=== PATIENT | female | born 1980 | race Caucasian/White ===

== ENCOUNTER 2016-08-15 08:46 | Emergency (ER) | payer BC ==
[2016-08-15 08:58] VITALS: BP 114/83
--- NOTE | 2016-08-15 09:05 | UC ---
Respiratory Complaint HPI - HPI Summary HPI Summary: 2 -3 days of cough, chills, no sputum, no fever, did get a flu shot this year - History of Current Complaint Chief Complaint: UCGeneralIllness Stated Complaint: FEVER CHILLS BODYACHES COUGH Time Seen by Provider: 08/15/16 08:58 Hx Obtained From: Patient Hx Last Menstrual Period: 08/04/16 ?: No Onset/Duration: Sudden Onset, Lasting Days - 3, Still Present Timing: Constant Severity Initially: Mild Severity Currently: Mild Pain Intensity: 2 Pain Scale Used: 0-10 Numeric Character: Cough: Nonproductive Aggravating Factors: Nothing Alleviating Factors: Nothing Associated Signs And Symptoms: Positive: Chills, URI - Allergies/Home Medications Allergies/Adverse Reactions: Allergies Allergy/AdvReac Type Severity Reaction Status Date / Time No Known Allergies Allergy Verified 08/15/16 08:54 Home Medications: Home Medications Acetaminophen TAB* [Tylenol TAB*] 2 tab PRN 08/15/16 [History] PMH/Surg Hx/FS Hx/Imm Hx Previously Healthy: No Endocrine History Of: Denies: Diabetes, Thyroid Disease Cardiovascular History Of: Denies: Cardiac Disorders, Hypertension, Pacemaker/ICD Respiratory History Of: Denies: COPD, Asthma GI/ History Of: Denies: Ulcer, Renal Disease Psychological History Of: Reports: Anxiety - ON MEDICATION FOR - Surgical History Surgical History: Yes Surgery Procedure, Year, and Place: TUBAL LIGATION; 2 C-SECT; VACUUM D&C. 2015 RIGHT ankle- screws placed - Family History Known Family History: Positive: Cardiac Disease, Diabetes - Social History Occupation: Employed Full-time - [employer] Lives: With Family Alcohol Use: None Substance Use Type: None Smoking Status (MU): Light Every Day Tobacco Smoker Amount Used/How Often: < 1/2PPD Length of Time of Smoking/Using Tobacco: 10+ YEARS Have You Smoked in the Last Year: Yes Household Exposure Type: Cigarettes Cessation Counseling: Counseled 3+Min - 10 Min - Immunization History Most Recent Influenza Vaccination: 2016 Most Recent Tetanus Shot: 2003 Review of Systems Constitutional: Chills, Fatigue Skin: Negative Eyes: Negative ENT: Negative Respiratory: Cough Cardiovascular: Negative Gastrointestinal: Negative Genitourinary: Negative Motor: Negative Neurovascular: Negative Musculoskeletal: Negative Neurological: Negative Psychological: Negative All Other Systems Reviewed And Are Negative: Yes Physical Exam Triage Information Reviewed: Yes Appearance: Well-Appearing, No Pain Distress, Obese Vital Signs: Initial Vital Signs Temp 98.1 F 08/15/16 08:55 Pulse 82 08/15/16 08:55 Resp 18 08/15/16 08:55 BP 114/83 08/15/16 08:55 Pulse Ox 96 08/15/16 08:55 Vital Signs Reviewed: Yes Eye Exam: Normal Eyes: Positive: Conjunctiva Clear ENT Exam: Normal ENT: Positive: Normal ENT inspection, Hearing grossly normal, Pharynx normal, TMs normal. Negative: Nasal congestion, Nasal drainage, Tonsillar swelling, Tonsillar exudate, Trismus, Muffled/hoarse voice Dental Exam: Normal Neck exam: Normal Neck: Positive: Supple, Nontender, No Lymphadenopathy Respiratory Exam: Normal Respiratory: Positive: Chest non-tender, Lungs clear, Normal breath sounds, No respiratory distress, No accessory muscle use Cardiovascular Exam: Normal Cardiovascular: Positive: RRR, No Murmur, Pulses Normal Musculoskeletal Exam: Normal Musculoskeletal: Positive: Strength Intact, ROM Intact, No Edema Neurological Exam: Normal Neurological: Positive: Alert, Muscle Tone Normal Psychological Exam: Normal Skin Exam: Normal UC Diagnostic Evaluation - Laboratory O2 Sat by Pulse Oximetry: 96 Respiratory Course/Dx - Course Course Of Treatment: albuterol, zithromax, increase fluids, follow with pcp re- check prn - Differential Dx/Diagnosis Differential Diagnosis/HQI/PQRI: Asthma, Bronchitis, Lower Resp Infection, Other - uri Provider Diagnoses: Bronchitis, Nicotine dependant Discharge - Discharge Plan Condition: Stable Disposition: HOME Prescriptions: Albuterol HFA INHALER* [Ventolin HFA Inhaler*] 2 puff INH Q6H PRN #1 mdi PRN Reason: cough Azithromycin TAB* [Zithromax TAB (Z-KEMI)*] 250 mg PO .Z-KEMI INSTRUCTIONS #6 tab Benzonatate CAP* [Tessalon CAP*] 100 mg PO TID PRN #30 cap PRN Reason: cough Patient Education Materials: How to Use a Metered-Dose Inhaler (ED), Acute Bronchitis (ED) Forms: *Work Release Referrals: Kenn Jones MD [Primary Care Provider] - If Needed
== END 2016-08-15 09:10 | disposition home or self-care (01) ==
LOC: UCEAST 08:46
DX: J40 Bronchitis, not specified as acute or chronic (principal); F17.210 Nicotine dependence, cigarettes, uncomplicated
CPT/HCPCS: 99212; G0463

== ENCOUNTER 2016-08-30 10:34 | Emergency (ER) | payer BC ==
[2016-08-30 10:58] VITALS: BP 136/93
--- NOTE | 2016-08-30 13:45 | UC ---
Rubin Benito Karl, scribed for Tasha Ribera DO on 08/30/16 at 1315 . Lower Extremity/Ankle HPI - HPI Summary HPI Summary: Pt is a 36 y/o female that presents to [facility] c/o intermittent 6/10 right ankle/ foot pain for the past 2-3 months. Pt reported that the pain is a sharp shooting pain that occasionally throbs. Pt stated she is on her feet a lot which aggravates her pain and did not suffer any injury to the foot/ankle. Pt stated that she had reconstructive surgery on her right ankle 2 years ago. Pt denied any other health problems. - History of Current Complaint Chief Complaint: UCLowerExtremity Stated Complaint: FOOT PAIN Time Seen by Provider: 08/30/16 13:07 Hx Obtained From: Patient Hx Last Menstrual Period: 08/04/16 ?: No Onset/Duration: Gradual Onset Pain Intensity: 6 - right ankle/foot pain Pain Scale Used: 0-10 Numeric Aggravating Factor(s): Other - ADL Alleviating Factor(s): Nothing Able to Bear Weight: Yes Legs: 1 - right ankle/foot pain Feet (Multiple View): 1 - right foot/ankle pain - Allergies/Home Medications Allergies/Adverse Reactions: Allergies Allergy/AdvReac Type Severity Reaction Status Date / Time No Known Allergies Allergy Verified 08/15/16 08:54 PMH/Surg Hx/FS Hx/Imm Hx Endocrine History Of: Denies: Diabetes, Thyroid Disease Cardiovascular History Of: Denies: Cardiac Disorders, Hypertension, Pacemaker/ICD Respiratory History Of: Denies: COPD, Asthma GI/ History Of: Denies: Ulcer, Renal Disease Psychological History Of: Reports: Anxiety - ON MEDICATION FOR - Surgical History Surgical History: Yes Surgery Procedure, Year, and Place: TUBAL LIGATION; 2 C-SECT; VACUUM D&C. 2015 RIGHT ankle- screws placed - Family History Known Family History: Positive: Cardiac Disease, Diabetes Negative: Hypertension - Social History Occupation: Employed Full-time Lives: With Family Alcohol Use: None Substance Use Type: None Smoking Status (MU): Light Every Day Tobacco Smoker Amount Used/How Often: < 1/2PPD Length of Time of Smoking/Using Tobacco: 10+ YEARS Have You Smoked in the Last Year: Yes Household Exposure Type: Cigarettes Cessation Counseling: Patient Advised to Stop - Immunization History Most Recent Influenza Vaccination: 2016 Most Recent Tetanus Shot: 2002 Review of Systems Constitutional: Negative Skin: Negative Eyes: Negative ENT: Negative Respiratory: Negative Cardiovascular: Negative Gastrointestinal: Negative Genitourinary: Negative Motor: Negative Neurovascular: Negative Musculoskeletal: Arthralgia - right ankle/foot Neurological: Negative Psychological: Negative All Other Systems Reviewed And Are Negative: Yes Physical Exam Triage Information Reviewed: Yes Appearance: Well-Appearing, No Pain Distress, Obese Vital Signs: Initial Vital Signs Temp 97.8 F 08/30/16 10:53 Pulse 83 08/30/16 10:53 Resp 18 08/30/16 10:53 BP 136/93 08/30/16 10:53 Pulse Ox 99 08/30/16 10:53 Vital Signs Reviewed: Yes Eyes: Positive: Conjunctiva Clear. Negative: Discharge ENT: Positive: Hearing grossly normal. Negative: Muffled/hoarse voice Neck exam: Normal Neck: Positive: Supple Respiratory: Positive: Chest non-tender, Lungs clear, Normal breath sounds, No respiratory distress Cardiovascular: Positive: RRR, No Murmur Musculoskeletal: Positive: ROM Limited @ - ad/abduction, inversion, eversion, Other: - midfoot tenderness, post surgical changes Neurological: Positive: Alert, Muscle Tone Normal Psychological Exam: Normal Psychological: Positive: Age Appropriate Behavior Skin Exam: Normal - warm, dry, normal color Lower Extremity Course/Dx - Differential Dx/Diagnosis Differential Diagnosis/HQI/PQRI: Arthritis, Sprain, Tendonitis Provider Diagnoses: arththritis Discharge - Discharge Plan Condition: Stable Disposition: HOME Prescriptions: Naproxen [Naproxen 500 MG TABS] 500 mg PO BID #10 tab traMADol TAB* [Ultram*] 50 mg PO Q8H PRN #14 tab MDD 3 TABS PRN Reason: Pain Patient Education Materials: Arthralgia (ED) Referrals: Kenn Jones MD [Primary Care Provider] - (FOLLOW UP IN 3-5 DAYS) Jose Perez MD [Medical Doctor] - (follow up in 1-2 weeks) Additional Instructions: YOU WOULD LIKELY BENEFIT FROM OSTEOPATHIC MANIPULATION. WE RECOMMEND THAT YOU FIND AN OSTEOPATHIC PHYSICIAN IN YOUR AREA WHO DOES LYMPHATIC, MYOFACIAL AND VISCERAL WORK. The documentation as recorded by the Rubin haile Karl accurately reflects the service I personally performed and the decisions made by me, Tasha Ribera DO.
== END 2016-08-30 13:30 | disposition home or self-care (01) ==
LOC: UCEAST 10:34
DX: M19.071 Primary osteoarthritis, right ankle and foot (principal); E66.9 Obesity, unspecified; F41.9 Anxiety disorder, unspecified; F17.210 Nicotine dependence, cigarettes, uncomplicated; Z98.890 Other specified postprocedural states
CPT/HCPCS: 99212; G0463

== ENCOUNTER 2017-02-20 21:08 | Emergency (ER) | payer BC ==
[2017-02-20 21:14] VITALS: BP 121/81
--- NOTE | 2017-03-12 16:37 | UC ---
Jocelyn Benito Thomas, scribed for Mabel Miranda MD on 02/20/17 at 2128 . Upper Extremity HPI - HPI Summary HPI Summary: The patient is a 36 y/o F presenting to [facility] [place] c/o R elbow pain that began 1 week ago. The pt is unaware of any specific injury. The patient describes the pain as aching and rates the pain 6/10. Pain is aggravated by ADLs, changing position , and exercise. Pain is alleviated by rest. The pt has taken ibuprofen to alleviate the pain, which has helped somewhat. She reports a shooting pain upon movement of her elbow. She additionally c/o swelling (R elbow) and bruising (R elbow). Pt denies fever, chill, nausea, and vomiting. She reports a recent long car ride with her arm in a specific position. She is L-handed. She denies any injury like this before. Her PCP is Dr. Jones. PMHx: osteoarthritis. PSHx: tubal ligation, R ankle hardware, and vacuum D&C. SHx: smoking (every day), no alcohol, no illicit drugs. FHx: DM, CAD. Patients medications are reviewed this visit. - History of Current Complaint Chief Complaint: UCUpperExtremity Stated Complaint: ARM COMPLAINT Time Seen by Provider: 02/20/17 21:18 Hx Obtained From: Patient Hx Last Menstrual Period: BEGINNING FEBRUARY Onset/Duration: Gradual Onset, Lasting Weeks - 1 week, Still Present Pain Intensity: 6 Pain Scale Used: 0-10 Numeric Aggravating Factor(s): Movement Alleviating Factor(s): OTC Meds, Rest Associated Signs And Symptoms: Positive: Swelling, Bruising. Negative: Fever Related History: Dominant Hand Left, Other: - NEG: nausea, vomiting - Allergies/Home Medications Allergies/Adverse Reactions: Allergies Allergy/AdvReac Type Severity Reaction Status Date / Time No Known Allergies Allergy Verified 02/20/17 21:14 Home Medications: Home Medications NK [No Home Medications Reported] 02/20/17 [History Confirmed 02/20/17] PMH/Surg Hx/FS Hx/Imm Hx Previously Healthy: No - osteoarthritis - Surgical History Surgical History: Yes Surgery Procedure, Year, and Place: TUBAL LIGATION; 2 C-SECT; VACUUM D&C. 2015 RIGHT ankle- screws placed - Family History Known Family History: Positive: Cardiac Disease, Diabetes Negative: Hypertension - Social History Alcohol Use: None Substance Use Type: None Smoking Status (MU): Current Every Day Smoker Type: Cigarettes Amount Used/How Often: 1/2PPD Length of Time of Smoking/Using Tobacco: 10+ YEARS Have You Smoked in the Last Year: Yes Household Exposure Type: Cigarettes - Immunization History Most Recent Influenza Vaccination: 2016 Most Recent Tetanus Shot: 2003 Review of Systems Constitutional: Negative Skin: Bruising - R elbow Eyes: Negative ENT: Negative Respiratory: Negative Cardiovascular: Negative Gastrointestinal: Negative Genitourinary: Negative Motor: Negative Neurovascular: Negative Musculoskeletal: Edema - R elbow, Other: - POS: R elbow pain, worsened with movement. Neurological: Negative Psychological: Negative All Other Systems Reviewed And Are Negative: Yes Physical Exam Triage Information Reviewed: Yes Appearance: Well-Appearing, No Pain Distress, Well-Nourished Vital Signs: Initial Vital Signs Temp 98.6 F 02/20/17 21:11 Pulse 81 02/20/17 21:11 Resp 16 02/20/17 21:11 BP 121/81 02/20/17 21:11 Pulse Ox 98 02/20/17 21:11 Vital Signs Reviewed: Yes Eye Exam: Normal ENT Exam: Normal ENT: Positive: Hearing grossly normal Neck exam: Normal Neck: Positive: Supple, Nontender, No Lymphadenopathy Respiratory Exam: Normal Respiratory: Positive: Chest non-tender, Lungs clear, Normal breath sounds Cardiovascular Exam: Normal Cardiovascular: Positive: RRR, No Murmur, Pulses Normal Abdominal Exam: Normal Abdomen Description: Positive: Nontender, No Organomegaly, Soft Bowel Sounds: Positive: Present Musculoskeletal Exam: Normal Musculoskeletal: Positive: Other: - + abduct right shoulder + flex/ext elbow with pain right lateral elbow; + supinate/pronate with pain lateral aspect. Pt with pain along right lateral epicondyl direct palp Neurological Exam: Normal Neurological: Positive: Alert, Muscle Tone Normal, Fatigued - + thumb up, a ok, finger spread, finger cross Psychological Exam: Normal Skin: Positive: Other - mild ecchymosis olecranon no rashes, no erythema, no fluctuance Upper Extremity Course/Dx - Course Course Of Treatment: Pt with point tenderness right lateral epicondyl following a car trip with pressure. No concern for infection - full rOM. recommend. motrin/apap. heat. rest. pcp f/u - Differential Dx/Diagnosis Provider Diagnoses: right epicondylitis Discharge - Discharge Plan Condition: Stable Disposition: HOME Patient Education Materials: Tendinitis (ED) Forms: *Work Release Referrals: Kenn Jones MD [Primary Care Provider] - Additional Instructions: - wear sling for comfor and support - rest your arm as much as your possible to help with pain - Okay to apply ice (Wrapped in a towel) 20 minutes at a time, 2-3 times a day. - Okay to take motrin (ibuprofen, advil) 600mg every 6-8 hours for pain. Take with food. do NOT take for more than 4-5 days - Contact your doctor tomorrow to schedule a follow-up appointment early next week. Contact your doctor or return with questions or concerns The documentation as recorded by the Jocelyn haile Thomas accurately reflects the service I personally performed and the decisions made by me, Mabel Miranda MD.
== END 2017-02-20 21:42 | disposition home or self-care (01) ==
LOC: UCEAST 21:08
DX: M77.11 Lateral epicondylitis, right elbow (principal); F17.210 Nicotine dependence, cigarettes, uncomplicated
CPT/HCPCS: 99212; G0463

== ENCOUNTER 2018-03-31 18:55 | Emergency (ER) | payer BC ==
[2018-03-31 19:18] VITALS: BP 115/77
[2018-03-31] MEDS ORDERED: Ibuprofen TAB* 400 MG PO ONE (19:59)
--- NOTE | 2018-03-31 19:59 | UC ---
Knee Pain HPI - HPI Summary HPI Summary: Pt is a 37 year old female presenting to the with a chief complaint of L knee pain. She states that it started about a week ago but has only gotten worse and is constant. The pain is worse with any knee movement, and worse if she stays in one position for too long. She feels that it looks a little swollen , and states that her toes and feel fine. Pt denies taking any medications today as well as any recent falls or injuries. Pt reports that she has had knee trouble in the past, she had a bakers cyst about 5-6 years ago. Pt also had her R ankle rebuilt three years ago. Pt denies any hx of diabetes or HTN or any drug or EtOH use. Pt reports smoking ppd. - History of Current Complaint Chief Complaint: UCLowerExtremity Stated Complaint: KNEE PAIN Time Seen by Provider: 03/31/18 19:39 Hx Obtained From: Patient Hx Last Menstrual Period: 03/05/18 Onset/Duration: Gradual Onset, Lasting Weeks, Still Present Severity Initially: Mild Severity Currently: Mild Location Of Injury: L knee. Pain Intensity: 4 Pain Scale Used: 0-10 Numeric Character: Aching Aggravating Factor(s): Other - staying in one position too long Alleviating Factor(s): Other - changing positions Associated Signs And Symptoms: Positive: Swelling - mild Able to Bear Weight: Yes - Allergies/Home Medications Allergies/Adverse Reactions: Allergies Allergy/AdvReac Type Severity Reaction Status Date / Time No Known Allergies Allergy Verified 03/31/18 19:18 PMH/Surg Hx/FS Hx/Imm Hx Previously Healthy: Yes Endocrine History: Other - negative diabetes Other Endocrine History: none Cardiovascular History: Other Other Cardiovascular History: negative Hypertension - Surgical History Surgical History: Yes Surgery Procedure, Year, and Place: TUBAL LIGATION; 2 C-SECT; VACUUM D&C. 2015 RIGHT ankle- screws placed - Family History Known Family History: Positive: Cardiac Disease, Diabetes Negative: Hypertension - Social History Occupation: Employed Part-time Lives: With Family Alcohol Use: None Substance Use Type: None Smoking Status (MU): Current Every Day Smoker Type: Cigarettes Amount Used/How Often: 1/2PPD Length of Time of Smoking/Using Tobacco: 10+ YEARS Have You Smoked in the Last Year: Yes Household Exposure Type: Cigarettes - Immunization History Most Recent Influenza Vaccination: 2016 Most Recent Tetanus Shot: 2002 Review of Systems Constitutional: Negative - fever Musculoskeletal: Other: - L knee pain All Other Systems Reviewed And Are Negative: Yes Physical Exam - Summary Physical Exam Summary: Appearance: Well-appearing, Well-nourished Skin: Warm Eyes: Normal ENT: Normal Neck: Supple, nontender Respiratory: Clear to auscultation Cardiovascular: Normal S1, S2. No murmurs. Normal distal pulses in tibial and radial bilaterally. Abdomen: Soft, nontender Musculoskeletal: Strength/ROM Intact, pain partially reproduced with valgus stress, negative anterior and posterior drawer signs, no joint effusion, no redness. Neurological: Normal, A&Ox3 Psychiatric: Normal General: No acute distress Triage Information Reviewed: Yes Vital Signs: Initial Vital Signs Temp 99.2 F 03/31/18 19:13 Pulse 83 03/31/18 19:13 Resp 16 03/31/18 19:13 BP 115/77 03/31/18 19:13 Pulse Ox 99 03/31/18 19:13 Vital Signs Reviewed: Yes Diagnostics - Radiology No standard instances Xray Interpretation: No Acute Changes - Knee XRAY Radiology Interpretation Completed By: ED Physician - Report has not yet been reviewed by radiologist. Knee Pain Course/Dx - Course Course Of Treatment: No acute fractures or dislocations seen on x-ray. Patient able to walk normally, instructed to follow up with orthopedist for further workup. Distal neurovascular exam intact, agrees to and understands discharge instructions. - Differential Dx/Diagnosis Provider Diagnoses: Left knee pain Discharge - Sign-Out/Discharge Documenting (check all that apply): Patient Departure All imaging exams completed and their final reports reviewed: Yes - Discharge Plan Condition: Stable Disposition: HOME Patient Education Materials: Knee Pain (ED) Referrals: Kenn Jones MD [Primary Care Provider] - Jose Perez MD [Medical Doctor] - Additional Instructions: PLEASE MAKE AN APPOINTMENT TO SEE YOUR ORTHOPEDIST WITHIN 1-2 WEEKS. PLEASE SEEK IMMEDIATE MEDICAL ATTENTION FOR ANY WORSENING OR CONCERNING SYMPTOMS - Billing Disposition and Condition Condition: STABLE Disposition: Home - Attestation Statements Document Initiated by Scribe: Yes Documenting Scribe: Shira Willson Provider For Whom Scribe is Documenting (Include Credential): Shaun Goff MD. Scribe Attestation: Shira Benito, scribed for Shaun Goff MD. on 03/31/18 at 2305. Scribe Documentation Reviewed: Yes Provider Attestation: The documentation as recorded by the scribe, Shira Willson accurately reflects the service I personally performed and the decisions made by me, Shaun Goff MD.
--- NOTE | 2018-04-01 08:08 | RAD ---
INDICATION: 1 week of atraumatic left knee pain COMPARISON: None TECHNIQUE: 3 view radiograph of the left knee. FINDINGS: The visualized bones are well-corticated and properly aligned. The joint spaces are properly maintained. There is no radiographic evidence of joint effusion. There is no acute fracture, dislocation or other focal bony abnormality. IMPRESSION: Normal knee radiograph as described above. If the patient's symptoms persist, follow-up imaging is recommended. R1
== END 2018-03-31 21:17 | disposition home or self-care (01) ==
LOC: UCEAST 18:55
DX: M25.562 Pain in left knee (principal); F17.210 Nicotine dependence, cigarettes, uncomplicated
CPT/HCPCS: 99212; A9270-GY; G0463

== ENCOUNTER 2018-05-11 21:16 | Emergency (ER) | payer BC ==
--- OUTSIDE RECORDS SUMMARY | 2018-05-11 21:22 | XMS REPORT ---
:1980 External Reference #:[id number] Author Organization [employer] [facility] Address [address] [place] [address] Phone [phone] Care Team Providers Name Role Phone Kenn Jones MD Primary Care Physician Unavailable Payers Type Date Identification Numbers Payment Provider Subscriber Commercial Policy Number: [id number] [facility] Marion Guerrero PayID: [id number] [address] [place] [address] Problems Date Description Provider Status Onset: 08/10/2014 Skin sensation disturbance Ravi King M.D. Active Family History Date Family Member(s) Problem(s) Comments General Heart Disease General Diabetes Social History Type Date Description Comments Lives With ETOH Use Denies alcohol use Smoking Patient is a current smoker, smokes every day Exercise Type/Frequency Exercises regularly Allergies, Adverse Reactions, Alerts Date Description Reaction Status Severity Comments 08/10/2014 NKDA active Medications Medication Date Status Form Strength Qnty SIG Indications Ordering Provider Amitriptyline 00/ Active Tablets 10mg 60tabs 1-2 Unknown HCL 0000 tablets at bedtime as directed Keflex 05/04/ Hx Capsules 500mg 28caps 1 tab by Jose Marcus - mouth four Chris, 05/31/ times a M.D. 2014 day [place] 04/13/ Hx Tablets 5-325mg 30tabs 1-2 by Jose Marcus - mouth Chris 05/31/ every 4 M.D. 2015 hours as needed Oxycodone HCL 03/25/ Hx Capsules 5mg 60caps 1-2 tabs M76.821 Jose Marcus - by mouth Chris 05/31/ every 4-6 M.D. 2015 hours as needed pain Neurontin 00// Hx 300mg Unknown - 2014 Vicodin / Hx 5/325 Unknown - 2014 Medications Administered in Office Medication Date Status Form Strength Qnty SIG Indications Ordering Provider Depomedrol Administered Injection Dirk Tamara, 80MG 015 M.D. Vital Signs Date Vital Result Comment 04/14/2018 Height 63 inches 5'3" Weight 250.00 lb Heart Rate 76 /min BP Systolic 132 mmHg BP Diastolic 86 mmHg Respiratory Rate 18 /min Pain Level 10 BMI (Body Mass Index) 44.3 kg/m2 05/08/2016 Height 63 inches 5'3" Weight 255.00 lb Pain Level 0 BMI (Body Mass Index) 45.2 kg/m2 07/06/2015 Height 63 inches 5'3" Weight 244.00 lb Pain Level 1 BMI (Body Mass Index) 43.2 kg/m2 06/01/2015 Height 63 inches 5'3" Weight 244.00 lb Pain Level 0 BMI (Body Mass Index) 43.2 kg/m2 05/11/2015 Height 63 inches 5'3" Weight 244.00 lb Pain Level 0 BMI (Body Mass Index) 43.2 kg/m2 05/04/2015 Height 63 inches 5'3" Weight 244.00 lb Pain Level 0 BMI (Body Mass Index) 43.2 kg/m2 04/12/2015 Height 63 inches 5'3" Weight 244.00 lb Body Temperature 97.1 F BMI (Body Mass Index) 43.2 kg/m2 04/06/2015 Height 63 inches 5'3" Weight 244.00 lb Body Temperature 98.2 F Pain Level 5 BMI (Body Mass Index) 43.2 kg/m2 03/25/2015 Height 63 inches 5'3" Weight 166.00 lb Pain Level 6 BMI (Body Mass Index) 29.4 kg/m2 03/09/2015 Height 63 inches 5'3" Weight 166.00 lb Heart Rate 71 /min BP Systolic 117 mmHg BP Diastolic 89 mmHg BMI (Body Mass Index) 29.4 kg/m2 01/26/2015 Height 63 inches 5'3" Weight 1668.00 lb BMI (Body Mass Index) 295.4 kg/m2 01/04/2015 Height 63 inches 5'3" Weight 245.00 lb Heart Rate 83 /min BP Systolic 129 mmHg BP Diastolic 90 mmHg BMI (Body Mass Index) 43.4 kg/m2 08/10/2014 Height 63 inches 5'3" Weight 238.00 lb Heart Rate 64 /min BP Systolic Sitting 130 mmHg BP Diastolic Sitting 70 mmHg Respiratory Rate 16 /min BMI (Body Mass Index) 42.2 kg/m2 Results Test Date Test Result H/L Range Note Laboratory test 04/04/2015 Cancellous Chips 5cc SEE RESULTS BELO 1, 2 finding <SEE NOTE> DBX 2.5 SEE RESULTS BELO <SEE NOTE> 1, 3 1 RIGHT TENDINITIS TIBIALIS 2 SEE RESULTS BELOW [id number] CANC CHIPS 5CC TRANSFUSED 04/04/15 1206 [id number] CANC CHIPS 5CC TRANSFUSED 04/04/15 1206 3 SEE RESULTS BELOW [id number] DBX 2.5 TRANSFUSED 04/04/15 1206 Procedures Date CPT Code Description Status 04/14/2018 98303 Inject/Drain Joint/Bursa Major W/O US Completed 05/11/2015 39121 Walking Cast Completed 05/04/2015 18867 Short Leg Cast Completed 04/12/2015 45553 Short Leg Cast Completed 04/06/2015 90120 application of short leg splint Completed 04/04/2015 12254 Artrodesis Subtalar Completed 04/04/2015 96719 Artrodesis Subtalar Completed 04/04/2015 32984 Repair Flexor Tendon Foot W/O Free Graft Completed 04/04/2015 Bone Graft Any Donor Area Minr Or SM (Eg Dowel Or Completed Button) 04/04/2015 Bone Graft Any Donor Area Minr Or SM (Eg Dowel Or Completed Button) 01/26/2015 17268 Inject/Drain Joint/Bursa Intermediate W/O US Completed Encounters Type Date Location Provider CPT E/M Dx Office Visit 05/08/2016 [facility] 62700 M76.71 9:15a Of [facility] Valenzuela Office Visit 07/06/2015 [facility] 10229 M76.821 1:50p Of Jodi Valenzuela Z47.89 Office Visit 03/25/2015 2:00p [facility] 52714 726.72 Jodi Valenzuela Office Visit 03/09/2015 1:00p [facility], 85524 726.72 C.Ramo Valenzuela 715.37 Office Visit 01/26/2015 2:45p [facility] Mcdonald M.D. 58762 726.72 C.MYuridia 715.37 Office Visit 01/04/2015 2:30p [facility] Colon, 69685 726.72 C.MYuridia RPA-C 719.47 Office Visit 08/10/2014 2:30p [facility] Ravi King, 00754 723.1 Services Of Kiki Valenzuela Office Visit 07/20/2014 3:23p [facility] Ravi King, 28116 782.0 Services Of K[facility] Val[facility]uel[facility] Plan of Care 04/14/2018 - Jaxon Reyes, [id number] Pain in left kneeNew Xrays:MRI Knee Left W/OFollow up:Follow up: after MRI
[2018-05-11] MEDS ORDERED: Albuterol 2.5 MG/3 ML NEB.SOL* (0.083%) INH ONE (21:39)
[2018-05-11] MEDS ORDERED: predniSONE TAB* 10 MG PO ONE (21:40)
--- NOTE | 2018-05-11 21:46 | UC ---
Respiratory Complaint HPI - HPI Summary HPI Summary: 38-year-old female presents with onset of URI symptoms on 05/08/2018. States started with some mild nasal congestion, clear nasal discharge, and a mild nonproductive cough. States symptoms have worsened over the last 3 days to include sinus pressure, yellow nasal discharge, and bilateral ear fullness. Developed fever as high as 102.8 F yesterday. Today she has noticed chest tightness and shortness of breath as well as a persistent harsh nonproductive cough. She is not had her flu shot this year. 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 Reports quit smoking 5 days ago. Smoking 1/2 PPD prior to that. - History of Current Complaint Chief Complaint: UCRespiratory Stated Complaint: COUGH,FEVER,ACHES Time Seen by Provider: 05/11/18 21:28 Hx Obtained From: Patient Hx Last Menstrual Period: 05/10/18 Onset/Duration: Gradual Onset, Lasting Days - 3 Severity Currently: Moderate Pain Intensity: 4 Character: Cough: Nonproductive Aggravating Factors: Exertion Alleviating Factors: Nothing Associated Signs And Symptoms: Positive: Dyspnea, Fever, Chills, URI, Nasal Congestion, Sinus Discomfort. Negative: Wheezing, Hemoptysis, Dizziness, Edema , Hoarseness - Allergies/Home Medications Allergies/Adverse Reactions: Allergies Allergy/AdvReac Type Severity Reaction Status Date / Time No Known Allergies Allergy Verified 05/11/18 21:25 PMH/Surg Hx/FS Hx/Imm Hx Previously Healthy: Yes - Denies significant PMH - Surgical History Surgical History: Yes Surgery Procedure, Year, and Place: TUBAL LIGATION; 2 C-SECT; VACUUM D&C. 2015 RIGHT ankle- screws placed - Family History Known Family History: Positive: Cardiac Disease, Diabetes Negative: Hypertension - Social History Occupation: Employed Full-time Lives: With Family Alcohol Use: None Substance Use Type: None Smoking Status (MU): Current Every Day Smoker Type: Cigarettes Amount Used/How Often: 1/2PPD Length of Time of Smoking/Using Tobacco: 10+ YEARS Have You Smoked in the Last Year: Yes Household Exposure Type: Cigarettes - Immunization History Most Recent Influenza Vaccination: 2016 Most Recent Tetanus Shot: 2002 Review of Systems Constitutional: Fever, Chills, Fatigue Skin: Negative Eyes: Negative ENT: Ear Ache, Nasal Discharge, Sinus Congestion, Sinus Pain/Tenderness Respiratory: Shortness Of Breath, Cough Cardiovascular: Negative Gastrointestinal: Negative Is Patient Immunocompromised?: No All Other Systems Reviewed And Are Negative: Yes Physical Exam Triage Information Reviewed: Yes Appearance: No Pain Distress, Obese Vital Signs: Initial Vital Signs Temp 97.9 F 05/11/18 21:21 Pulse 84 05/11/18 21:21 Resp 18 05/11/18 21:21 BP 146/91 05/11/18 21:21 Pulse Ox 96 05/11/18 21:21 Vital Signs Reviewed: Yes Eyes: Positive: Conjunctiva Clear. Negative: Discharge ENT: Positive: Pharyngeal erythema - Mild with cobblestoning, Nasal congestion, Nasal drainage, TMs normal, Hoarse voice, Sinus tenderness - maxillary, Uvula midline. Negative: Tonsillar swelling, Tonsillar exudate, Muffled voice Neck: Positive: Supple, Nontender, No Lymphadenopathy Respiratory: Positive: Chest non-tender, No respiratory distress, Decreased breath sounds, Wheezing - Diffuse bilateral wheezing. Negative: Crackles, Rhonchi Cardiovascular: Positive: RRR, No Murmur Neurological: Positive: Alert Skin Exam: Normal UC Diagnostic Evaluation - Laboratory O2 Sat by Pulse Oximetry: 96 Re-Evaluation - Re-Evaluation First Eval Re-Evaluation Time: 22:03 Change: Unchanged Comment: Patient reports breathing unchanged after albuterol nebulizer. Continues to feel chest tightness. Bilateral breath sound decreased and continues to have diffuse wheezes bilaterally. Respiratory Course/Dx - Course Course Of Treatment: 38 year old female with onset of URI symptoms 3 days ago. Developed fever yesterday along with worsening of symptoms. Today noted shortness of breath, chest tightness, and worsening of cough. Exam remarkable for bilateral diffuse wheezing and non-productive bronchospastic cough. She received an albuterol nebulizer with little improvement in symptoms therefore she was given a DuoNeb treatment x 1. She reported breathing improved after treatment. She continued to have diffuse bilateral wheezing but air exchange greatly improved. Pulse ox 98% RA. Patient was offered a 3rd treatment here but states she would prefer to continue to do treatments at home. Her daughter has a nebulizer pump therefore tubing and 2 doses of DuoNeb was sent home with patient. She was given first dose of azithromycin and prednisone in clinic with prescriptions sent to continue each for next 4 days. She was also given a prescription for an albuterol inhaler. She is to follow up with her PCP within 5 days. She was given warning symptoms requiring immediate evaluation in ED. Verbalizes understanding and agrees with POC. - Differential Dx/Diagnosis Differential Diagnosis/HQI/PQRI: Asthma, Bronchitis, Lower Resp Infection Provider Diagnoses: Upper respiratory infection, reactive airway disease not asthma, elevated blood pressure reading Discharge - Sign-Out/Discharge Documenting (check all that apply): Patient Departure All imaging exams completed and their final reports reviewed: No Studies - Discharge Plan Condition: Stable Disposition: HOME Prescriptions: Albuterol HFA INHALER* [Ventolin HFA Inhaler*] 2 puff INH Q4H PRN #1 mdi PRN Reason: Sob/Wheezing Azithromycin TAB* [Zithromax TAB (Z-KEMI) 250 mg #6 tabs] 250 mg PO DAILY #4 tab predniSONE TAB* [Deltasone 20 MG TAB*] 40 mg PO DAILY #8 tab Patient Education Materials: Upper Respiratory Infection (ED), Reactive Airways Disease (ED) Referrals: Kenn Jones MD [Primary Care Provider] - 5 Days (For recheck of symptoms.) Additional Instructions: With the fever and wheezing I am going to start you on an antibiotic for your upper respiratory infection called azithromycin. You were given the first dose in the clinic tonight. Starting tomorrow take 1 tablet daily for next 4 days. I am going to also start you on a steroid called prednisone to help with the inflammation in your airways that are causing the wheezing. We gave you the first dose in the clinic. Starting tomorrow take 2 tabs daily for next 4 days. Use albuterol inhaler 2 puffs every 4-6 hours as needed for shortness of breath , wheezing, or coughing fits. Follow up with your primary care provider within 5 days for recheck of symptoms. Seek immediate medical attention in the emergency room if you develop persistent chest pain, worsening shortness of breath, wheezing that persists despite using albuterol, you become weak or dizzy, or have any worsening of symptoms. - Billing Disposition and Condition Condition: STABLE Disposition: Home - Attestation Statements Provider Attestation: Per institutional requirements, I have reviewed the chart, however, I was not consulted specifically or made aware of this patient by the midlevel provider. I did not personally evaluate, interact with , or disposition this patient.
[2018-05-11] MEDS ORDERED: Azithromycin TAB* 250 MG PO ONE (21:58)
[2018-05-11] MEDS ORDERED: Albuterol/Ipratropium NEB.SOL* Albuterol 2.5 MG/Ipratropium 0.5 MG 3 ML INH ONE ×2 (22:02→22:32)
[2018-05-11] MEDS ORDERED: Albuterol/Ipratropium NEB.SOL* Albuterol 2.5 MG/Ipratropium 0.5 MG 3 ML ONE (22:36)
[2018-05-11 22:45] VITALS: BP 122/69
== END 2018-05-11 22:42 | disposition home or self-care (01) ==
LOC: UCEAST 21:16
DX: J06.9 Acute upper respiratory infection, unspecified (principal); J98.8 Other specified respiratory disorders; R03.0 Elevated blood-pressure reading, without diagnosis of hypertension; F17.210 Nicotine dependence, cigarettes, uncomplicated; E66.9 Obesity, unspecified
CPT/HCPCS: 99213; A9270-GY; G0463; J7512

== ENCOUNTER 2018-07-30 17:44 | Emergency (ER) | payer BC ==
[2018-07-30 18:16] VITALS: BP 143/83
[2018-07-30] MEDS ORDERED: cefTRIAXone VIAL(*) 1,000 MG VIAL IM ONE (18:33)
[2018-07-30] MEDS ORDERED: Lidocaine 1% MPF* 2 ML VIAL INJ ONE ×2 (18:39→18:40)
[2018-07-30] MEDS ORDERED: Lidocaine 1%* 5 ML VIAL ONE (18:41)
--- NOTE | 2018-07-30 18:47 | ED ---
Skin Complaint - HPI Summary HPI Summary: 38 yo obese WF h/o recurrent skin abscesses on her pannus presents with another abscess on her abdomen. It is red, tender and hot and it hurts when it rubs against her jeans. - History of Current Complaint Chief Complaint: UCSkin Time Seen by Provider: 07/30/18 18:20 Stated Complaint: SKIN COMPLAINT Hx Obtained From: Patient Hx Last Menstrual Period: July 05, 2018 Onset/Duration: Started Days Ago Skin Exposure Onset/Duration: Days Ago Timing: Lasting Days Onset Severity: Moderate Current Severity: Severe Pain Intensity: 5 Skin Location: Discrete, Abdomen Character: Swelling, Raised, Painful Aggravating Symptom(s): Clothing, Touch Alleviating Symptom(s): Nothing Associated Signs & Symptoms: Negative - Allergy/Home Medications Allergies/Adverse Reactions: Allergies Allergy/AdvReac Type Severity Reaction Status Date / Time No Known Allergies Allergy Verified 07/30/18 18:16 PMH/Surg Hx/FS Hx/Imm Hx Endocrine/Hematology History: Reports: Hx Anemia - HX OF IN THE PAST Denies: Hx Diabetes, Hx Thyroid Disease Cardiovascular History: Denies: Hx Hypertension, Hx Pacemaker/ICD Respiratory History: Denies: Hx Asthma, Hx Chronic Obstructive Pulmonary Disease (COPD) GI History: Denies: Hx Ulcer History: Denies: Hx Dialysis, Hx Renal Disease Musculoskeletal History: Reports: Hx Arthritis, Hx Tendonitis - RIGHT FOOT, Other Musculoskeletal History - 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 2015 RIGHT ankle- screws placed Hx Anesthesia Reactions: No Infectious Disease History: No Infectious Disease History: Denies: Hx Hepatitis, Hx Human Immunodeficiency Virus (HIV), Traveled Outside the [place] in Last 30 Days - Family History Known Family History: Positive: Cardiac Disease, Diabetes Negative: Hypertension - Social History Alcohol Use: None Substance Use Type: Reports: None Smoking Status (MU): Current Every Day Smoker Type: Cigarettes Amount Used/How Often: 1/2PPD Length of Time of Smoking/Using Tobacco: 10+ YEARS Have You Smoked in the Last Year: Yes Review of Systems Constitutional: Negative Eyes: Negative ENT: Negative Cardiovascular: Negative Respiratory: Negative Gastrointestinal: Negative Genitourinary: Negative Musculoskeletal: Negative Skin: Other - skin abscess on pannus Neurological: Negative Psychological: Normal All Other Systems Reviewed And Are Negative: Yes Physical Exam - Summary Physical Exam Summary: Vital Signs Reviewed: Yes Skin: Positive: Warm, raised, Minimally fluctuant tender skin lesion size 2x2cm with surrounding cellulitis size 5x4cm Head/Face: Positive: Normal Head/Face Inspection Eyes: Positive: Normal ENT: Positive: Normal ENT inspection Neck: Positive: Supple Respiratory/Lung Sounds: Positive: Clear to Auscultation Cardiovascular: Positive: Normal, RRR, S1, S2 Abdomen Description: Positive: Nontender Musculoskeletal: Positive: Normal Neurological: Positive: Normal Psychiatric: Positive: Normal, Affect/Mood Appropriate Vital Signs On Initial Exam: Initial Vitals Temp Pulse Resp BP Pulse Ox 36.7 C 67 12 143/83 99 07/30/18 18:13 07/30/18 18:13 07/30/18 18:13 07/30/18 18:13 07/30/18 18:13 Diagnostics - Vital Signs Vital Signs Temp Pulse Resp BP Pulse Ox 07/30/18 18:13 36.7 C 67 12 143/83 99 - Laboratory Lab Statement: Any lab studies that have been ordered have been reviewed, and results considered in the medical decision making process. Course/Dx - Course Assessment/Plan: Skin abscess with cellulitis- recurrent- not quite ready to be I&D'd yet- will tx with IM rocephin and PO Bactrim DS- RTC in 2 days to see if becomes more fluctuant and ready to be drained - Differential Diagnoses - Skin Complaint Differential Diagnoses: Abscess - Diagnoses Provider Diagnoses: Abscess of skin and subcutaneous tissue Discharge - Sign-Out/Discharge Documenting (check all that apply): Patient Departure All imaging exams completed and their final reports reviewed: Yes - Discharge Plan Condition: Stable Disposition: HOME Prescriptions: Sulfamethox/Trimethoprim DS* [Bactrim DS 800/160 TAB*] 1 tab PO BID 10 Days #20 tab Patient Education Materials: Abscess (ED) Referrals: Kenn Jones MD [Primary Care Provider] - - Billing Disposition and Condition Condition: STABLE Disposition: Home
[2018-07-30] MEDS ORDERED: Sulfamethox/Trimethoprim DS 800/160* TAB PO ONE (18:52)
== END 2018-07-30 19:12 | disposition home or self-care (01) ==
LOC: UCEAST 17:44
DX: L02.211 Cutaneous abscess of abdominal wall (principal); F17.210 Nicotine dependence, cigarettes, uncomplicated
CPT/HCPCS: 96372; 99212; A9270-GY; G0463; J0696

== ENCOUNTER 2019-09-09 15:15 | Emergency (ER) | payer BC ==
[2019-09-09 16:13] VITALS: BP 131/89
[2019-09-09 16:38] LABS: Influenza A Molecular Negative (Negative); Influenza B Molecular Negative (Negative)
--- NOTE | 2019-09-09 16:42 | UC ---
FLU HPI - HPI Summary HPI Summary: 39-year-old female presents with sudden onset of general malaise, fatigue, body aches, nasal congestion, and sore throat. No measured fever however states has had some chills. Reports her daughter was just diagnosed with influenza type A. Denies ear pain, dysphagia, chest pain, shortness of breath, cough, abdominal pain, nausea, vomiting, diarrhea. - History of Current Complaint Chief Complaint: UCGeneralIllness Stated Complaint: FEVER, CHILLS Time Seen by Provider: 09/09/19 16:14 Hx Obtained From: Patient Hx Last Menstrual Period: Pain Intensity: 3 - Allergy/Home Medications Allergies/Adverse Reactions: Allergies Allergy/AdvReac Type Severity Reaction Status Date / Time No Known Allergies Allergy Verified 09/09/19 16:08 Home Medications: Home Medications Acetaminophen TAB* [Tylenol TAB*] 650 mg PO Q4H PRN 09/09/19 [History Confirmed 09/09/19] PMH/Surg Hx/FS Hx/Imm Hx Previously Healthy: Yes - Denies significant PMH - Surgical History Surgical History: Yes Surgery Procedure, Year, and Place: TUBAL LIGATION; 2 C-SECT; VACUUM D&C. 2015 RIGHT ankle- screws placed - Family History Known Family History: Positive: Cardiac Disease, Diabetes - Social History Occupation: Employed Full-time Lives: With Family Alcohol Use: None Substance Use Type: None Smoking Status (MU): Light Every Day Tobacco Smoker Type: Cigarettes Amount Used/How Often: 1/2PPD Length of Time of Smoking/Using Tobacco: 10+ YEARS Have You Smoked in the Last Year: Yes Household Exposure Type: Cigarettes - Immunization History Most Recent Influenza Vaccination: 2016 Most Recent Tetanus Shot: 2003 Review of Systems All Other Systems Reviewed And Are Negative: Yes Constitutional: Positive: Chills Skin: Negative: Rash Eyes: Negative: Drainage, Eye Redness ENT: Positive: Sore Throat, Nasal Discharge, Sinus Congestion. Negative: Ear Ache, Sinus Pain/Tenderness Respiratory: Negative: Shortness Of Breath, Cough Cardiovascular: Negative: Palpitations, Chest Pain Gastrointestinal: Negative: Abdominal Pain, Vomiting, Diarrhea, Nausea Musculoskeletal: Positive: Myalgia Neurological: Positive: Negative Is Patient Immunocompromised?: No Physical Exam - Summary Physical Exam Summary: GENERAL APPEARANCE: Alert and cooperative obese adult female who appears to be in no acute distress. EYES: Conjunctiva clear. No drainage. EARS: External auditory canals and tympanic membranes clear, hearing grossly intact. NOSE: Mild nasal congestion. No nasal discharge. THROAT: Mild pharyngeal erythema. No tonsilar inflammation, swelling, exudate, or lesions. NECK: Neck supple, non-tender without lymphadenopathy. CARDIAC: Normal S1 and S2. No S3, S4 or murmurs. Rhythm is regular. There is no peripheral edema, cyanosis or pallor. Extremities are warm and well perfused. Capillary refill is less than 2 seconds. Peripheral pulses intact. LUNGS: Clear to auscultation without rales, rhonchi, wheezing or diminished breath sounds. ABDOMEN: Positive bowel sounds. Soft, nondistended, nontender. No guarding or rebound. No masses or hepatosplenomegally. MUSKULOSKELETAL: ROM intact to all extremities. No joint erythema or tenderness. Normal muscular development. Normal gait. SKIN: Skin normal color, texture and turgor with no lesions or eruptions. Triage Information Reviewed: Yes Vital Signs: Initial Vital Signs Temp 98.2 F 09/09/19 16:08 Pulse 60 09/09/19 16:08 Resp 16 09/09/19 16:08 BP 131/89 09/09/19 16:08 Pulse Ox 100 09/09/19 16:08 Vital Signs Reviewed: Yes Flu Course/Dx - Course Course Of Treatment: 39-year-old female presents with sudden onset of general malaise, fatigue, body aches, nasal congestion, and sore throat. No measured fever however states has had some chills. Reports her daughter was just diagnosed with influenza type A. Denies ear pain, dysphagia, chest pain, shortness of breath, cough, abdominal pain, nausea, vomiting, diarrhea. Afebrile. Vital signs stable. Patient had mild nasal congestion, normal TMs, mild pharyngeal erythema without tonsillar swelling or exudate, no cervical lymphadenopathy, clear bilateral breath sounds, and otherwise unremarkable exam. Flu test was negative. Reviewed results with the patient. Recommending symptomatic treatment for viral upper respiratory infection. She is to follow-up with her primary care provider in 5-7 days if symptoms are not improving. Anticipatory guidance and warning symptoms were reviewed with the patient. Verbalizes understanding and agrees with plan of care. - Differential Dx/Diagnosis Differential Diagnosis/HQI/PQRI: Bronchitis, Influenza, Pneumonia, Upper Respiratory Infection Provider Diagnosis: Viral URI Discharge ED - Sign-Out/Discharge Documenting (check all that apply): Patient Departure All imaging exams completed and their final reports reviewed: No Studies - Discharge Plan Condition: Stable Disposition: HOME Patient Education Materials: Upper Respiratory Infection (ED) Forms: *Work Release Referrals: Kenn Jones MD [Primary Care Provider] - 5 Days Additional Instructions: The flu test performed in the clinic today was negative. Your history and exam are consistent with a viral upper respiratory infection. Viral infections do not respond to antibiotics and are limited to the treatment of symptoms. Viral infections typically run their course in 7-10 days. Drink plenty of fluids to avoid dehydration especially if you are running any fever. Use a saline rinse kit such as Neti Pot or NeilMed at least twice a day to help thin secretions and promote drainage of the sinuses. Use fluticasone (Flonase) nasal spray 2 sprays each nostril once daily. Use an over the counter decongestant such as Sudafed to help with nasal congestion. Take over the counter acetaminophen (Tylenol) or ibuprofen (Advil, Motrin) according to directions as needed for pain or fever. Use salt water gargles several times a day if you have a sore throat. You may also use Chloraseptic spray or Cepacol lonzenges according to directions which contain a numbing medication and can provide some temporary relief from your sore throat. Follow up with your primary care provider in 5-7 days if symptoms persist. Seek immediate medical attention in the emergency room if you have fever greater than 100.5 F despite taking acetaminophen or ibuprofen, have chest pain , difficulty breathing, are unable to swallow, or have any worsening of symptoms. - Billing Disposition and Condition Condition: STABLE Disposition: Home
== END 2019-09-09 16:58 | disposition home or self-care (01) ==
LOC: UCEAST 15:15
DX: J06.9 Acute upper respiratory infection, unspecified (principal); R09.81 Nasal congestion; F17.210 Nicotine dependence, cigarettes, uncomplicated
CPT/HCPCS: 99211; G0463